=== PATIENT | female | born 1950 | race Caucasian/White ===

== ENCOUNTER 2022-09-24 11:30 | Emergency (ER) | payer MEDICARE, OTHER ==
[~2022-09-24] VITALS: Ht 160 cm; Wt 61.8 kg
[2022-09-24 15:30] VITALS: BP 157/72
[2022-09-24] MEDS ORDERED: NORCO, ANEXSIA 5/325MG TABLET (HYDROcodone/ACETAMINOPHEN) PO ONE (16:10)
== END 2022-09-24 17:09 | disposition home or self-care (01) ==
LOC: M ED 11:30 → EDBD 11:30 → M ED 17:09
DX: S32.020A Wedge compression fracture of second lumbar vertebra, initial encounter for closed fracture (principal); S32.040A Wedge compression fracture of fourth lumbar vertebra, initial encounter for closed fracture; E03.9 Hypothyroidism, unspecified; M43.16 Spondylolisthesis, lumbar region; V49.40XA Driver injured in collision with unspecified motor vehicles in traffic accident, initial encounter; Y92.410 Unspecified street and highway as the place of occurrence of the external cause; Y93.9 Activity, unspecified; Y99.9 Unspecified external cause status; Z88.2 Allergy status to sulfonamides